=== PATIENT | female | born 1945 | race Caucasian/White ===

== ENCOUNTER 2020-10-13 15:10 | Emergency (ER) | payer MEDICARE, BC ==
[2020-10-13] MEDS ORDERED: Promethazine 25 MG/ML SDV ONE (18:16)
[2020-10-13] MEDS ORDERED: Promethazine 12.5 MG in Sodium Chloride 0.9% 50 ML IV PRN (19:34)
[2020-10-13] MEDS ORDERED: Sodium Chloride 0.9% 500 ML IV ONE (19:36)
--- NOTE | 2020-10-13 19:39 | EDM.PDOC ---
ED HPI GENERAL MEDICAL PROBLEM - General Chief Complaint: Headache Stated Complaint: Headache and Dizziness Time Seen by Provider: 10/13/20 17:00 Source of Information: Reports: Patient History Limitations: Reports: No Limitations - History of Present Illness INITIAL COMMENTS - FREE TEXT/NARRATIVE: 74 year old female presented to ED with c/o vertigo & dizziness x 3-4 days -Toda y she stand up & she felt a pressure on the back of head -then she start spinning of her head & she sat down -& did some maneuver to reduce dizziness but dizziness & vertigo continued -she felt nauseated but she did not through up - denies fever ,headache ,chest pain, shortness of breath ,wheezing or abdominal pain Onset: Today, Sudden Duration: Day(s): (3) Quality: Reports: Pressure Improves with: Reports: None Worsens with: Reports: None - Related Data Allergies Allergy/AdvReac Type Severity Reaction Status Date / Time Sulfa (Sulfonamide Allergy Edema Verified 10/13/20 19:09 Antibiotics) Home Meds: Home Meds Metoprolol Succinate [Toprol Xl] 50 mg PO DAILY 10/13/20 [History] Rivaroxaban [Xarelto] 20 mg PO DAILY 10/13/20 [History] Triamterene/Hydrochlorothiazid [Triamterene-HCTZ 37.5-25 MG] 1 tab PO ASDIRECTED 10/13/20 [History] metFORMIN HCl [Glucophage Xr] 1,000 mg PO DAILY 10/13/20 [History] metFORMIN HCl [Metformin ER Osmotic] 1 tab PO DAILY 10/13/20 [History] Past Medical History Other Genitourinary History: bladder infection that showed normal limits on UA but was positive with video, had to take meds for 6 months Other Musculoskeletal History: LBP and neck upper trap pain Other Neuro History: SEVERINO with upper trap pain, chiro helped Other Psychiatric History: diabetes gets irritable when sugars are low Other Oncologic History: benign ca so had hysterectomy, has had breast biopsies Other Dermatologic History: precancer spots - Past Surgical History Other Musculoskeletal Surgeries/Procedures:: B TKA ED ROS GENERAL - Review of Systems Review Of Systems: See Below Constitutional: Reports: No Symptoms HEENT: Reports: No Symptoms Respiratory: Reports: No Symptoms, Shortness of Breath, Wheezing, Cough, Sputum Cardiovascular: Reports: No Symptoms Endocrine: Reports: No Symptoms GI/Abdominal: Reports: No Symptoms Musculoskeletal: Reports: No Symptoms Neurological: Reports: Dizziness ED EXAM, GENERAL - Physical Exam Exam: See Below Exam Limited By: No Limitations General Appearance: Alert, WD/WN, No Apparent Distress Head: Atraumatic, Normocephalic Neck: Normal Inspection Respiratory/Chest: No Respiratory Distress, Lungs Clear, Normal Breath Sounds, No Accessory Muscle Use, Chest Non-Tender Cardiovascular: Normal Peripheral Pulses, Regular Rate, Rhythm, No Edema, No G allop, No JVD, No Murmur, No Rub GI/Abdominal: Normal Bowel Sounds, Soft, Non-Tender, No Organomegaly, No Distention, No Abnormal Bruit Neurological: Alert, Oriented, CN II-XII Intact, Normal Cognition, Normal Gait, Normal Reflexes, No Motor/Sensory Deficits Course - Vital Signs Text/Narrative:: 74 year old female presented with dizziness lab ordered EKG done - troponin was normal Ct head shows no acute finding Iv line established -hydrated with normal saline & injection Phenergan 12.5 given . she feeling better - she was educated how to manage if there is an episode of dizziness . medication -meclizine 25 mg poqd Dispositions -she was discharge home f/u -with pcp she left ED in a stable condition Last Recorded V/S: Last Vital Signs Temp 98.9 F 10/13/20 19:59 Pulse 73 10/13/20 19:59 Resp 18 10/13/20 19:59 BP 145/73 H 10/13/20 19:59 Pulse Ox 99 10/13/20 19:59 - Orders/Labs/Meds Orders: Active Orders 24 hr Category Date Time Status Head wo Cont [CT] Stat Exams 10/13/20 17:30 Taken UA RFX TORI AND CULT IF INDIC [URIN] Stat Lab 10/13/20 20:18 Ordered Labs: Laboratory Tests 10/13/20 10/13/20 Range/Units 17:29 17:29 WBC 7.6 (4.0-11.0) K/uL RBC 4.19 (3.80-5.80) M/uL Hgb 12.7 (11.5-16.5) g/dL Hct 38.2 (37.0-47.0) % MCV 91 (76-96) fL MCH 30.3 (27.0-32.0) pg MCHC 33.2 (31.0-35.0) g/dL RDW 12.7 (11.0-16.0) % Plt Count 306 (150-500) K/uL MPV 9.9 (6.0-10.0) fL Neut % (Auto) 66.3 (45.0-70.0) % Lymph % (Auto) 24.3 (20.0-40.0) % [place] % (Auto) 9.0 (3.0-10.0) % Eos % (Auto) 0.1 L (1.0-5.0) % Baso % (Auto) 0.3 (0.0-0.5) % Neut # (Auto) 5.02 (2.00-7.50) K/uL Lymph # (Auto) 1.84 (1.50-4.00) K/uL [place] # (Auto) 0.68 (0.20-0.80) K/uL Eos # (Auto) 0.01 L (0.04-0.40) K/uL Baso # (Auto) 0.02 (0.02-0.10) K/uL Sodium 141 (136-145) mmol/L Potassium 4.5 (3.5-5.1) mmol/L Chloride 103 (98-107) mmol/L Carbon Dioxide 31.6 (21.0-32.0) mmol/L Anion Gap 10.9 (5.0-15.0) mmol/L BUN 12 (8-26) mg/dL Creatinine 0.71 (0.55-1.02) mg/dL Est Cr Clr Drug Dosing TNP Estimated GFR (MDRD) > 60 (>60) MLS/MIN BUN/Creatinine Ratio 16.9 (6-25) Glucose 112 H (74-100) mg/dL Calcium 9.5 (8.5-10.1) mg/dL Total Bilirubin 0.3 (0.0-1.0) mg/dL AST 11 L (15-37) U/L ALT 20 (12-78) U/L Alkaline Phosphatase 92 (46-116) U/L Troponin I < 0.017 (0.000-0.060) ng/mL Total Protein 7.5 (6.4-8.2) g/dL Albumin 3.7 (3.4-5.0) g/dL Globulin 3.8 (2.2-4.2) g/dL Albumin/Globulin Ratio 1.0 (0.8-2.0) Meds: Medications Discontinued Medications Generic Name Dose Route Start Last Admin Trade Name Angel PRN Reason Stop Dose Admin Promethazine HCl 12.5 mg/ 50.5 mls @ 200 mls/hr 10/13/20 19:34 10/13/20 18:20 Sodium Chloride IV 200 mls/hr Q6H PRN Administration Nausea/Vomiting Sodium Chloride 500 mls @ 500 mls/hr 10/13/20 19:36 10/13/20 18:10 Normal Saline IV 10/13/20 20:35 500 mls/hr .BOLUS ONE Administration Promethazine HCl Confirm 10/13/20 18:16 10/13/20 19:38 Phenergan Administered 10/13/20 18:17 Not Given Dose 25 mg .ROUTE .STK-MED ONE Departure - Departure Time of Disposition: 20:00 Disposition: Home, Self-Care 01 Condition: Fair Clinical Impression: Dizziness - Discharge Information *PRESCRIPTION DRUG MONITORING PROGRAM REVIEWED*: No *COPY OF PRESCRIPTION DRUG MONITORING REPORT IN PATIENT [place]: No Instructions: Vertigo, [id number] Referrals: PCP,None [Primary Care Provider] - Forms: ED Department Discharge Additional Instructions: use walker as needed . Take meclizine as directed fro dizziness. Follow Up with your doctor as needed. Sepsis Event Note (ED) - Evaluation Sepsis Screening Result: No Definite Risk - Focused Exam Vital Signs: Vital Signs Temp Pulse Resp BP Pulse Ox 10/13/20 19:59 98.9 F 73 18 145/73 H 99 10/13/20 19:11 96.2 F L 83 20 168/79 H 98 - Problem List & Annotations (1) Dizziness SNOMED Code(s): 836559011, 593406957 Code(s): R42 - DIZZINESS AND GIDDINESS Status: Acute Priority: Medium Onset Date: ~10/13/20 (2) Vertigo SNOMED Code(s): 422808796 Code(s): R42 - DIZZINESS AND GIDDINESS Status: Acute Priority: Medium Onset Date: ~10/13/20 - My Orders Last 24 Hours: My Active Orders 10/13/20 17:30 Head wo Cont [CT] Stat 10/13/20 20:18 UA RFX TORI AND CULT IF INDIC [URIN] Stat - Assessment/Plan Last 24 Hours: My Active Orders 10/13/20 17:30 Head wo Cont [CT] Stat 10/13/20 20:18 UA RFX TORI AND CULT IF INDIC [URIN] Stat
--- NOTE | 2020-10-14 07:25 | CT ---
DATE OF SERVICE: 10/13/20 CLINICAL DATA: vertigo UNENHANCED BRAIN CT: Multislice axial acquisition was performed without IV contrast. No masses or mass effect. No intracranial hemorrhage. No evidence of acute or subacute infarct. There is a cavum septum pellucidum and a cavum vergae. Normal variance. No osseous abnormalities. IMPRESSION: No acute intracranial abnormalities. [id number] [facility]
== END 2020-10-13 20:39 | disposition home or self-care (01) ==
LOC: LB.ED 15:10
DX: R42 Dizziness and giddiness (principal); Z88.2 Allergy status to sulfonamides; Z79.899 Other long term (current) drug therapy; Z79.01 Long term (current) use of anticoagulants
CPT/HCPCS: 36415; 70450; 80053; 81001; 84484; 85025; 87086; 93005; 96365; 99284; 99284-25; J2550; J7040